=== PATIENT | female | born 1970 | race Hispanic/Latino ===

== ENCOUNTER → 2020-10-10 11:44 | Outpatient (CLI) | payer SELFPAY ==
--- NOTE | 2020-10-10 | DI.RAD.S_ITS ---
PROCEDURE: XR CHEST 2V INDICATIONS: Nonspecific reaction to cell mediated immunity measurement o TECHNIQUE: 2 views of the chest were acquired. COMPARISON: None. FINDINGS: Surgical changes and devices: None. Lungs and pleura: Lungs are clear. No pleural effusions or pneumothorax. Mediastinum: Mediastinal contours are normal. Heart size is normal. Bones and chest wall: No suspicious bony abnormalities. Soft tissues appear unremarkable. IMPRESSION: No acute disease. Dictated by: Dominik Bass M.D. on 10/10/2020 at 16:01 Approved by: Dominik Bass M.D. on 10/10/2020 at 16:02
== END ==
PROVIDERS: Referring Provider Nurse Practitioner Family; Visit Provider Nurse Practitioner Family
DX: R76.12 Nonspecific reaction to cell mediated immunity measurement of gamma interferon antigen response without active tuberculosis (principal)
CPT/HCPCS: 71046

== ENCOUNTER → 2020-12-08 15:23 | Outpatient (CLI) | payer OTHER, SELFPAY ==
[2020-12-08] MEDS: COVID-19 VACC #1, MRNA(MOD) 100 MCG/0.5 ML VIAL IM (15:33)
== END ==
PROVIDERS: Visit Provider Internal Medicine
DX: Z23 Encounter for immunization (principal)
CPT/HCPCS: 0011A; 91301

== ENCOUNTER → 2021-01-06 15:03 | Outpatient (CLI) | payer OTHER, SELFPAY ==
[2021-01-06] MEDS: COVID-19 VACC #2, MRNA(MOD) 100 MCG/0.5 ML VIAL IM (15:17)
== END ==
PROVIDERS: Visit Provider Internal Medicine
DX: Z23 Encounter for immunization (principal)
CPT/HCPCS: 0012A; 91301

== ENCOUNTER → 2023-07-31 14:14 | Outpatient (CLI) | payer SELFPAY ==
--- NOTE | 2023-07-31 14:25 | DI.RAD.S_ITS ---
PROCEDURE: XR SHOULDER RT MIN 2V INDICATIONS: Right shoulder pain TECHNIQUE: 3 views of the shoulder were acquired. COMPARISON: None. FINDINGS: Bones: Mild acromioclavicular and glenohumeral degenerative changes. No displaced fracture or dislocation. Soft tissues: No suspicious calcifications IMPRESSION: Mild degenerative changes. No acute radiographic abnormality. If there is high concern for further derangement, consider MRI evaluation. Dictated by: Marlon Solis M.D. on 07/31/2023 at 17:26 Approved by: Marlon Solis M.D. on 07/31/2023 at 17:26
== END ==
LOC: RAD 14:22
PROVIDERS: Referring Provider Nurse Practitioner Family; Visit Provider Nurse Practitioner Family
DX: M25.511 Pain in right shoulder (principal)
CPT/HCPCS: 73030

== ENCOUNTER → 2024-01-14 08:10 | Outpatient (CLI) | payer SELFPAY ==
[2024-01-14 10:18] LABS: Urine N gonorrhoeae NOT DETECTED
[2024-01-14 10:19] LABS: Urine Chlamydia NOT DETECTED
== END ==
PROVIDERS: Visit Provider Physician Assistant Surgical
DX: N89.8 Other specified noninflammatory disorders of vagina (principal)
CPT/HCPCS: 87210; 87491; 87591